=== PATIENT | male | born 1995 ===

== ENCOUNTER 2023-10-24 09:02 | Emergency (ER) | payer SELFPAY ==
[~2023-10-24] VITALS: Ht 172.7 cm; Wt 68.0 kg
[~2023-10-24 09:02] MED LIST: Norco 5-325 Ta1 EACH PO
[2023-10-24 09:23] VITALS: BP 136/83
[2023-10-24] MEDS ORDERED: Diphth,Pertuss(Acell),Tet Vac 0.5 ML VIAL IM ONE (09:45)
== END 2023-10-24 10:21 | disposition home or self-care (01) ==
LOC: ER 09:02
DX: S61.512A Laceration without foreign body of left wrist, initial encounter (principal); W26.0XXA Contact with knife, initial encounter
CPT/HCPCS: 12001; 90471; 90715; 99282-25